=== PATIENT | male | born 1965 | race Caucasian/White ===

== ENCOUNTER 2018-03-02 11:15 | Emergency (ER) | payer OTHER, SELFPAY ==
--- NOTE | 2018-03-02 12:10 | RAD REPORT ---
EXAM DESCRIPTION: CT - CTHCSPWOC - 03/02/2018 11:52 am CLINICAL HISTORY: Fall, head and neck injury COMPARISON: None. TECHNIQUE: Axial 5 mm thick images of the head were obtained. Axial 2 mm thick images of the cervic al spine were obtained with sagittal and coronal reconstruction images generated and reviewed. All CT scans are performed using dose optimization technique as appropriate and may include automated exposure control or mA/KV adjustment according to patient size. FINDINGS: No intracranial hemorrhage, mass, edema or acute intracranial finding. No suspicion for ac ritesh infarction. No extra-axial fluid collections. Mastoid air cells and paranasal sinuses are clear. No globe or orbit abnormality seen. Cervical body height and alignment are normal. No disk space narrowing. No fracture or acute bony abn ormality. No paraspinal mass or hematoma. IMPRESSION: Negative CT head examination for acute or significant finding. Negative CT cervical spine examination for acute or significant finding.
--- NOTE | 2018-03-02 12:31 | ER ---
Nurse's Notes [facility] Name: Harpreet Fonseca Age: 53 yrs Sex: Male : 1965 Arrival Date: 03/02/2018 Time: 11:18 Bed 5 Private MD: Lorraine Jesus H Diagnosis: Contusion of unspecified part of head-right forehead;Superficial injury of head Presentation: 03/02 11:19 Presenting complaint: Patient states: "We were at [facility] and I went to walk out aj and theres a drain on the floor and it wasn't covered and I step through and fell forward and hit my head on the door" Denies LOC, vomiting. Denies taking any blood thinners. Reports headache, neck stiffness and nausea. Transition of care: patient was not received from another setting of care. Onset of symptoms was March 02, 2018 at 11:00. Risk Assessment: Do you want to hurt yourself or someone else? Patient reports no desire to harm self or others. Initial Sepsis Screen: Does the patient meet any 2 criteria? No. Patient's initial sepsis screen is negative. Does the patient have a suspected source of infection? No. Patient's initial sepsis screen is negative. Care prior to arrival: None. 11:19 Method Of Arrival: Ambulatory [facility] 11:19 Acuity: KATERINA 3 aj1 Triage Assessment: 11:21 General: Appears in no apparent distress. uncomfortable, Behavior is calm, cooperative, aj1 appropriate for age. Pain: Complains of pain in occipital area and right eye Pain currently is 5 out of 10 on a pain scale. Neuro: Level of Consciousness is awake, alert, obeys commands, Gait is steady, Speech is normal. Cardiovascular: Patient's skin is warm and dry. Respiratory: Airway is patent Respiratory effort is even, unlabored, Respiratory pattern is regular, symmetrical. Historical: - Allergies: 11:21 No Known Allergies; aj1 - Home Meds: 11:21 None [Active]; aj1 - PMHx: 11:21 None; aj1 - Immunization history:: Flu vaccine is not up to date. - Social history:: Smoking status: Patient/guardian denies using tobacco. - Ebola Screening: : Patient denies travel to an Ebola-affected area in the 21 days before illness onset. Screenin:36 Abuse screen: Denies threats or abuse. Denies injuries from another. Nutritional ph screening: No deficits noted. Tuberculosis screening: No symptoms or risk factors identified. Fall Risk Fall in past 12 months (25 points). No secondary diagnosis (0 pts). No IV (0 pts). Ambulatory Aid- None/Bed Rest/Nurse Assist (0 pts). Gait- Normal/Bed Rest/Wheelchair (0 pts) Mental Status- Oriented to own ability (0 pts). Total Ramos Fall Scale indicates Low Risk Score (25-44 pts). Fall prevention measures have been instituted. Family Present and informed to notify staff if they need to leave bedside As available Patient and Family Educated on Fall Prevention Program and strategies. Assessment: 11:33 General: Appears in no apparent distress. comfortable, well groomed, Behavior is calm, ph cooperative, appropriate for age. Pain: Complains of pain in right posterior aspect of neck and left posterior aspect of neck, right side of forehead. Neuro: Level of Consciousness is awake, alert, obeys commands, Oriented to person, place, time, situation, Moves all extremities. Full function Gait is steady, Speech is normal, Facial symmetry appears normal, Facial symmetry: tongue is midline, Pupils are PERRLA, Reports dizziness, headache Denies weakness difficulty swallowing, photophobia. Cardiovascular: Capillary refill < 3 seconds in bilateral fingers Patient's skin is warm and dry. Respiratory: Airway is patent Respiratory effort is even, unlabored, Denies shortness of breath pain with respiration. GI: Reports nausea, Patient currently denies abdominal pain, vomiting. Derm: Skin is healthy with good turgor, Skin is pink, warm \\T\\ dry. Musculoskeletal: Circulation, motion, and sensation intact. Range of motion: intact in all extremities. Injury Description: Abrasion sustained to right side of forehead. 12:45 Reassessment: Patient appears in no apparent distress at this time. Patient and/or ph family updated on plan of care and expected duration. Pain level reassessed. Patient is alert, oriented x 3, equal unlabored respirations, skin warm/dry/pink. Pt d/c home w/ SO, instructed to follow up w/ neuro if symptoms persist. Vital Signs: 11:21 BP 150 / 101; Pulse 79; Resp 18; Temp 97.7; Pulse Ox 97% on R/A; Weight 111.13 kg (R); aj1 Height 5 ft. 10 in. (177.80 cm); Pain 5/10; 12:46 BP 142 / 87; Pulse 76; Resp 18; Temp 98.0; Pulse Ox 99% on R/A; Pain 4/10; ph 11:21 Body Mass Index 35.15 (111.13 kg, 177.80 cm) aj1 ED Course: 11:18 Patient arrived in ED. sb2 11:18 Lorraine Jesus DO is Private Physician. sb2 11:21 Triage completed. aj1 11:21 Arm band placed on Patient placed in an exam room. aj1 11:23 Preet Flood NP is PHCP. pm1 11:23 Abdon Bhatia MD is Attending Physician. pm1 11:28 Brynn Lira RN is Primary Nurse. ph 11:37 Patient has correct armband on for positive identification. Bed in low position. Call ph light in reach. Side rails up X 1. 11:51 CT Head C Spine In Process Unspecified. EDMS 12:30 Lorraine Jesus DO is Referral Physician. pm1 12:32 Dwayne De Jesus MD is Referral Physician. pm1 12:47 No provider procedures requiring assistance completed. Patient did not have IV access ph during this emergency room visit. Administered Medications: No medications were administered Outcome: 12:30 Discharge ordered by MD. pm1 12:47 Discharged to home ambulatory, with significant other. ph 12:47 Condition: good 12:47 Discharge instructions given to patient, Instructed on discharge instructions, follow up and referral plans. Demonstrated understanding of instructions, follow-up care. 12:47 Patient left the ED. ph Signatures: Dispatcher [employer] EDMS Leda Bravo RN RN aj1 Brynn Lira RN RN Preet Flood NP BURNING SUPERVISOR pm1 Gisela Saravia sb2
--- NOTE | 2018-03-02 12:32 | EDPHYS ---
Physician Documentation [facility] Name: Harpreet Fonseca Age: 53 yrs Sex: Male : 1965 Arrival Date: 03/02/2018 Time: 11:18 Bed 5 Private MD: Lorraine Jesus H ED Physician Abdon Bhatia HPI: 03/02 12:00 This 53 yrs old Male presents to ER via Ambulatory with complaints of Fall pm1 Injury. 12:00 Details of fall: The patient fell from an upright position, while walking. Onset: The pm1 symptoms/episode began/occurred this morning. Associated injuries: The patient sustained injury to the head, contusion. Severity of symptoms: in the emergency department the symptoms are unchanged. The patient has experienced a previous episode, many years ago, Patient with symptoms of a concussion while playing football many years ago. The patient has not recently seen a physician. Patient was walking out of [employer] this AM and he stepped into a hole after the grate slipped out. Patient hit the right side of his forehead against the concrete. Patient has a mild headache and felt fine until he started practice swing at home with his golf dog trainer. His headache got worse with the exertion. No LOC. No vomiting . Historical: - Allergies: 11:21 No Known Allergies; aj1 - Home Meds: 11:21 None [Active]; aj1 - PMHx: 11:21 None; aj1 - Immunization history:: Flu vaccine is not up to date. - Social history:: Smoking status: Patient/guardian denies using tobacco. - Ebola Screening: : Patient denies travel to an Ebola-affected area in the 21 days before illness onset. ROS: 12:00 Constitutional: Negative for fever, chills, and weight loss, Eyes: Negative for injury, pm1 pain, redness, and discharge, ENT: Negative for injury, pain, and discharge, Neck: Negative for injury, pain, and swelling, Cardiovascular: Negative for chest pain, palpitations, and edema, Respiratory: Negative for shortness of breath, cough, wheezing, and pleuritic chest pain, Abdomen/GI: Negative for abdominal pain, nausea, vomiting, diarrhea, and constipation, Back: Negative for injury and pain, MS/Extremity: Negative for injury and deformity, Skin: Negative for injury, rash, and discoloration. 12:00 Neuro: Positive for headache. Exam: 12:00 Constitutional: This is a well developed, well nourished patient who is awake, alert, pm1 and in no acute distress. 12:00 Eyes: Pupils equal round and reactive to light, extra-ocular motions intact. Lids and lashes normal. Conjunctiva and sclera are non-icteric and not injected. Cornea within normal limits. Periorbital areas with no swelling, redness, or edema. ENT: Nares patent. No nasal discharge, no septal abnormalities noted. Tympanic membranes are normal and external auditory canals are clear. Oropharynx with no redness, swelling, or masses, exudates, or evidence of obstruction, uvula midline. Mucous membranes moist. Chest/axilla: Normal chest wall appearance and motion. Nontender with no deformity. No lesions are appreciated. Cardiovascular: Regular rate and rhythm with a normal S1 and S2. No gallops, murmurs, or rubs. Normal PMI, no JVD. No pulse deficits. Respiratory: Lungs have equal breath sounds bilaterally, clear to auscultation and percussion. No rales, rhonchi or wheezes noted. No increased work of breathing, no retractions or nasal flaring. Abdomen/GI: Soft, non-tender, with normal bowel sounds. No distension or tympany. No guarding or rebound. No evidence of tenderness throughout. Back: No spinal tenderness. No costovertebral tenderness. Full range of motion. Skin: Warm, dry with normal turgor. Normal color with no rashes, no lesions, and no evidence of cellulitis. MS/ Extremity: Pulses equal, no cyanosis. Neurovascular intact. Full, normal range of motion. 12:00 Head/face: Noted is no obvious of injury or deformity except contusion, of the right side of forehead. 12:00 Neck: External neck: tenderness, of the left trapezius and right trapezius, C-spine: vertebral tenderness, is not appreciated. Vital Signs: 11:21 BP 150 / 101; Pulse 79; Resp 18; Temp 97.7; Pulse Ox 97% on R/A; Weight 111.13 kg (R); aj1 Height 5 ft. 10 in. (177.80 cm); Pain 5/10; 12:46 BP 142 / 87; Pulse 76; Resp 18; Temp 98.0; Pulse Ox 99% on R/A; Pain 4/10; ph 11:21 Body Mass Index 35.15 (111.13 kg, 177.80 cm) aj1 MDM: 11:33 Patient medically screened. pm1 12:23 Data reviewed: vital signs. Data interpreted: Pulse oximetry: on room air is 97 %. pm1 Interpretation: normal. 12:25 ED course: Patient refused pain medication during ER visit and for prescription. pm1 12:29 Counseling: I had a detailed discussion with the patient and/or guardian regarding: the pm1 historical points, exam findings, and any diagnostic results supporting the discharge/admit diagnosis, radiology results, the need for outpatient follow up, to return to the emergency department if symptoms worsen or persist or if there are any questions or concerns that arise at home. 03/02 11:33 Order name: CT Head C Spine; Complete Time: 12:21 pm1 Administered Medications: No medications were administered Disposition: 16:24 Co-signature as Attending Physician, Abdon Bhatia MD I agree with the assessment and kdr plan of care. Disposition: 03/02/18 12:30 Discharged to Home. Impression: Contusion of unspecified part of head - right forehead, Superficial injury of head. - Condition is Stable. - Discharge Instructions: Contusion, Concussion, Adult, Head Injury, Adult. - Medication Reconciliation Form, Thank You Letter form. - Follow up: Emergency Department; When: As needed; Reason: Worsening of condition. Follow up: Lorraine Jesus DO; When: 2 - 3 days; Reason: Recheck today's complaints, Continuance of care, Re-evaluation by your physician. Follow up: Dwayne De Jesus MD; When: 2 - 3 days; Reason: Recheck today's complaints, Continuance of care, Re-evaluation by your physician. - Problem is new. - Symptoms have improved. Signatures: Dispatcher [employer] EDMS Leda Bravo RN RN aj1 Abdon Bhatia MD MD [facility] Brynn Lira RN RN ph Preet Flood, RENTAL SALESPERSON RENTAL SALESPERSON pm1 Corrections: (The following items were deleted from the chart) 12:30 12:30 03/02/2018 12:30 Discharged to Home. Impression: Contusion of unspecified part of pm1 head - right forehead. Condition is Stable. Forms are Medication Reconciliation Form, Thank You Letter, Antibiotic Education, Prescription Opioid Use. Follow up: Emergency Department; When: As needed; Reason: Worsening of condition. Follow up: Lorraine Jesus; When: 2 - 3 days; Reason: Recheck today's complaints, Continuance of care, Re-evaluation by your physician. Problem is new. Symptoms have improved. pm1 12:32 12:30 03/02/2018 12:30 Discharged to Home. Impression: Contusion of unspecified part of pm1 head - right forehead; Superficial injury of head. Condition is Stable. Forms are Medication Reconciliation Form, Thank You Letter, Antibiotic Education, Prescription Opioid Use. Follow up: Emergency Department; When: As needed; Reason: Worsening of condition. Follow up: Lorraine Jesus; When: 2 - 3 days; Reason: Recheck today's complaints, Continuance of care, Re-evaluation by your physician. Problem is new. Symptoms have improved. pm1 12:47 12:32 03/02/2018 12:30 Discharged to Home. Impression: Contusion of unspecified part of ph head - right forehead; Superficial injury of head. Condition is Stable. Discharge Instructions: Contusion, Concussion, Adult, Head Injury, Adult. Forms are Medication Reconciliation Form, Thank You Letter. Follow up: Emergency Department; When: As needed; Reason: Worsening of condition. Follow up: Lorraine Jesus; When: 2 - 3 days; Reason: Recheck today's complaints, Continuance of care, Re-evaluation by your physician. Follow up: Dwayne De Jesus; When: 2 - 3 days; Reason: Recheck today's complaints, Continuance of care, Re-evaluation by your physician. Problem is new. Symptoms have improved. pm1
== END 2018-03-02 12:47 | disposition home or self-care (01) ==
LOC: ER 11:15
DX: S00.83XA Contusion of other part of head, initial encounter (principal); W19.XXXA Unspecified fall, initial encounter; Y93.01 Activity, walking, marching and hiking; Y92.511 Restaurant or cafe as the place of occurrence of the external cause
CPT/HCPCS: 70450; 72125; 99283

== ENCOUNTER 2019-12-08 11:29 | Emergency (ER) | payer BC, SELFPAY ==
[2019-12-08] MEDS ORDERED: ONDANSETRON 4 MG/2 ML VIAL ONE (12:36)
[2019-12-08] MEDS ORDERED: NA CHLORIDE 0.9% 1,000 ML ONE ×2 (12:36→14:23)
[2019-12-08] MEDS ORDERED: MECLIZINE HCL 12.5 MG TAB ONE (12:36)
[2019-12-08] MEDS ORDERED: FOLIC ACID 5 MG/ML VIAL ONE (12:37)
--- NOTE | 2019-12-08 12:37 | RAD REPORT ---
EXAM DESCRIPTION: CT - Head Brain Wo Cont - 12/08/2019 12:24 pm CLINICAL HISTORY: headache;Dizziness Headache, drowsiness COMPARISON: Head C Spine Mpr Wo Con dated 03/02/2018 TECHNIQUE: All CT scans are performed using dose optimization technique as appropriate and may inclu de automated exposure control or mA/KV adjustment according to patient size. FINDINGS: No intracranial hemorrhage, hydrocephalus or extra-axial fluid collection.No areas of brai n edema or evidence of midline shift. The paranasal sinuses and mastoids are clear. The calvarium is intact. IMPRESSION: No acute intracranial abnormality.
--- NOTE | 2019-12-08 12:41 | RAD REPORT ---
EXAM DESCRIPTION: RAD - Chest Single View - 12/08/2019 12:20 pm CLINICAL HISTORY: COUGH Chest pain. COMPARISON: Head Brain Wo Cont dated 12/08/2019 FINDINGS: Portable technique limits examination quality. The lungs are grossly clear. The heart is upper limit of normal in size. No displaced fractures. IMPRESSION: No acute intrathoracic process suspected.
[2019-12-08 12:54] LABS: Absolute Lymphocytes (CBC) 2.1 K/uL (0.7-4.9); Basophils % 1.3 % (0-1.3); Hematocrit 51.2 % (39.6-49.0); Lymphocytes % 24.5 % (15.3-44.8); MPV 9.2 fL (7.6-11.3); RBC Red Blood Cell Count 5.84 M/uL (4.33-5.43)
[2019-12-08] MEDS ORDERED: FENTANYL CITR 100 MCG/2 ML ONE ×2 (12:55→13:56)
[2019-12-08] MEDS ORDERED: KETOROLAC 30 MG/ML INJ ONE (13:08)
[2019-12-08 13:14] LABS: ALT/SGPT 27 U/L (12-78); AST/SGOT 15 U/L (15-37); Alkaline Phosphatase 37 U/L (45-117); BUN Blood Urea Nitrogen 12 mg/dL (7-18); Bicarbonate 28 mmol/L (21-32); Bilirubin Direct 0.2 mg/dL (0-0.2); Bilirubin Total 0.6 mg/dL (0.2-1.0); Glucose Level 99 mg/dL (74-106); Magnesium 2.1 mg/dL (1.8-2.4); NT PRO-BNP 20 pg/mL (<125); Potassium 4.3 mmol/L (3.5-5.1); Protein, Total 7.6 g/dL (6.4-8.2); Sodium Level 141 mmol/L (136-145); Troponin (Emerg Dept Use Only) < 0.02 ng/mL (0.0-0.045)
--- NOTE | 2019-12-08 13:47 | RAD REPORT ---
EXAM DESCRIPTION: CT - Head angio - 12/08/2019 1:33 pm CLINICAL HISTORY: Dizziness;Headache Headache, drowsiness, TIA COMPARISON: Head Brain Wo Cont dated 12/08/2019 TECHNIQUE: CT angiography of the head was performed with MIPs. All CT scans are performed using dose optimization technique as appropriate and may include automated exposure control or mA/KV adjustment according to patient size. FINDINGS: No evidence of aneurysm is detected. No flow-limiting stenosis or vascular malformation id entified. Antegrade flow is seen in the vertebral arteries. The vertebral arteries are codominant. The visualized dural venous sinuses are patent. IMPRESSION: No significant flow abnormality is detected.
--- NOTE | 2019-12-08 13:49 | RAD REPORT ---
EXAM DESCRIPTION: CT - Neck Angio - 12/08/2019 1:34 pm CLINICAL HISTORY: headache/ dizziness Headache, drowsiness, COMPARISON: Head C Spine Mpr Wo Con dated 03/02/2018 TECHNIQUE: CT angiography of the neck vessels was performed with MIPs. All CT scans are performed using dose optimization technique as appropriate and may include automated exposure control or mA/KV adjustment according to patient size. FINDINGS: A left aortic arch is identified with normal three vessel configuration of the great vesse ls. No significant flow abnormality is seen of the common carotid bilaterally. No significant stenosis is identified involving the cervical segments of both internal carotid arteri es. Normal flow is seen within both vertebral arteries. IMPRESSION: No significant flow abnormality of the neck vessels is identified.
--- NOTE | 2019-12-08 14:11 | EDPHYS ---
Physician Documentation [facility] Name: Harpreet Fonseca Age: 54 yrs Sex: Male : 1965 Arrival Date: 12/08/2019 Time: 11:34 Bed 5 Private MD: Lorraine Jesus H ED Physician Jose Martin Townsend HPI: 12/07 12:53 This 54 yrs old Male presents to ER via Wheelchair with complaints of rocio Dizziness, Headache, Disoriented. 12:53 The patient presents with dizziness, lightheadedness, sense of spinning, vertigo. rocio Onset: The symptoms/episode began/occurred just prior to arrival. Context: occurred outdoors. Modifying factors: The symptoms are alleviated by closing eyes, holding head still. Associated signs and symptoms: Pertinent positives: headache. Severity of symptoms: At their worst the symptoms were mild moderate in the emergency department the symptoms are unchanged. Patient's baseline: Neuro: alert and fully oriented, Motor: no deficits, Ambulation: walks without assistance. The patient has experienced similar episodes in the past, multiple times, but today's symptoms are worse, more painful. Historical: - Allergies: 11:51 No Known Allergies; ss - Immunization history:: Adult Immunizations up to date. - Social history:: Smoking status: Patient denies any tobacco usage or history of. - Family history:: not pertinent. ROS: 12:53 Constitutional: Negative for fever, chills, and weight loss, Eyes: Negative for injury, rocio pain, redness, and discharge, ENT: Negative for injury, pain, and discharge, Neck: Negative for injury, pain, and swelling, Cardiovascular: Negative for chest pain, palpitations, and edema, Respiratory: Negative for shortness of breath, cough, wheezing, and pleuritic chest pain, Abdomen/GI: Negative for abdominal pain, nausea, vomiting, diarrhea, and constipation, Back: Negative for injury and pain, : Negative for injury, bleeding, discharge, and swelling, MS/Extremity: Negative for injury and deformity, Skin: Negative for injury, rash, and discoloration, Psych: Negative for depression, anxiety, suicide ideation, homicidal ideation, and hallucinations, Allergy/Immunology: Negative for hives, rash, and allergies, Endocrine: Negative for neck swelling, polydipsia, polyuria, polyphagia, and marked weight changes, Hematologic/Lymphatic: Negative for swollen nodes, abnormal bleeding, and unusual bruising. 12:53 Neuro: Positive for dizziness, headache. Exam: 12:53 Constitutional: This is a well developed, well nourished patient who is awake, alert, rocio and in no acute distress. Head/Face: Normocephalic, atraumatic. Eyes: Pupils equal round and reactive to light, extra-ocular motions intact. Lids and lashes normal. Conjunctiva and sclera are non-icteric and not injected. Cornea within normal limits. Periorbital areas with no swelling, redness, or edema. ENT: Nares patent. No nasal discharge, no septal abnormalities noted. Tympanic membranes are normal and external auditory canals are clear. Oropharynx with no redness, swelling, or masses, exudates, or evidence of obstruction, uvula midline. Mucous membranes moist. Neck: Trachea midline, no thyromegaly or masses palpated, and no cervical lymphadenopathy. Supple, full range of motion without nuchal rigidity, or vertebral point tenderness. No Meningismus. Chest/axilla: Normal chest wall appearance and motion. Nontender with no deformity. No lesions are appreciated. Cardiovascular: Regular rate and rhythm with a normal S1 and S2. No gallops, murmurs, or rubs. Normal PMI, no JVD. No pulse deficits. Respiratory: Lungs have equal breath sounds bilaterally, clear to auscultation and percussion. No rales, rhonchi or wheezes noted. No increased work of breathing, no retractions or nasal flaring. Abdomen/GI: Soft, non-tender, with normal bowel sounds. No distension or tympany. No guarding or rebound. No evidence of tenderness throughout. Back: No spinal tenderness. No costovertebral tenderness. Full range of motion. Male : Normal genitalia with no discharge or lesions. Skin: Warm, dry with normal turgor. Normal color with no rashes, no lesions, and no evidence of cellulitis. MS/ Extremity: Pulses equal, no cyanosis. Neurovascular intact. Full, normal range of motion. Neuro: Awake and alert, GCS 15, oriented to person, place, time, and situation. Cranial nerves II-XII grossly intact. Motor strength 5/5 in all extremities. Sensory grossly intact. Cerebellar exam normal. Normal gait. Psych: Awake, alert, with orientation to person, place and time. Behavior, mood, and affect are within normal limits. 12:53 Neck: ROM/movement: is normal, no acute changes, Meningeal signs: are not present, Kernig's sign is negative, Brudzinski's sign is negative. Vital Signs: 11:45 BP 140 / 99; Pulse 80; Resp 16; Temp 98.7(TE); Pulse Ox 95% on R/A; Weight 108.86 kg; ss Height 5 ft. 10 in. (177.80 cm); Pain 8/10; 11:52 BP 126 / 98; ss 12:45 BP 132 / 88; Pulse 78; Resp 16; Pulse Ox 99% ; Pain 8/10; hb 13:45 BP 136 / 86; Pulse 77; Resp 15; Pulse Ox 99% on R/A; Pain 8/10; hb 11:45 Body Mass Index 34.44 (108.86 kg, 177.80 cm) ss MDM: 11:56 Patient medically screened. [facility] 12:59 Data reviewed: vital signs, nurses notes, lab test result(s), EKG, radiologic studies, rocio CT scan, plain films. Data interpreted: compliance monitor: rate is 80 beats/min, rhythm is normal sinus rhythm, Pulse oximetry: on room air is 95 %. Test interpretation: by ED physician or midlevel provider: ECG, plain radiologic studies. Counseling: I had a detailed discussion with the patient and/or guardian regarding: the historical points, exam findings, and any diagnostic results supporting the discharge/admit diagnosis, lab results, radiology results, the need for outpatient follow up, for definitive care, a neurologist. ED course: labs all discussed, follow up important. 12/07 12:05 Order name: Basic Metabolic Panel; Complete Time: 14:05 [facility] 12/07 12:05 Order name: CBC with Diff; Complete Time: 14:05 [facility] 12/07 12:05 Order name: LFT's; Complete Time: 14:05 [facility] 12/07 12:05 Order name: Magnesium; Complete Time: 14:05 [facility] 12/07 12:05 Order name: NT PRO-BNP; Complete Time: 14:05 [facility] 12/07 12:05 Order name: Troponin (emerg Dept Use Only); Complete Time: 14:05 [facility] 12/07 12:01 Order name: CT Head Brain wo Cont; Complete Time: 12:40 ss 12/07 12:05 Order name: XRAY Chest (1 view); Complete Time: 14:05 [facility] 12/07 12:24 Order name: Sed Rate; Complete Time: 14:05 [facility] 12/07 12:24 Order name: CRP; Complete Time: 14:05 [facility] 12/07 12:41 Order name: CT Head Angio; Complete Time: 14:05 [facility] 12/07 12:47 Order name: Neck Angio; Complete Time: 14:05 EDMS 12/07 12:05 Order name: EKG; Complete Time: 12:05 [facility] 12/07 12:05 Order name: Cardiac monitoring; Complete Time: 12:23 [facility] 12/07 12:05 Order name: EKG - Nurse/Tech; Complete Time: 13:58 [facility] 12/07 12:05 Order name: IV Saline Lock; Complete Time: 12:41 [facility] 12/07 12:05 Order name: Labs collected and sent; Complete Time: 12:41 [facility] 12/07 12:05 Order name: O2 Per Protocol; Complete Time: 12:23 [facility] 12/07 12:05 Order name: O2 Sat Monitoring; Complete Time: 12:23 [facility] 12/07 14:10 Order name: Oxygen; Complete Time: 14:22 [facility] Administered Medications: 12:40 Drug: NS 0.9% 1000 ml Route: IV; Rate: 1 bolus; Site: right antecubital; hb 13:40 Follow up: Response: No adverse reaction; IV Status: Completed infusion; IV Intake: hb 1000ml 12:40 Drug: Meclizine 50 mg Route: PO; hb 13:10 Follow up: Response: No adverse reaction hb 12:40 Drug: Zofran (Ondansetron) 4 mg Route: IVP; Site: right antecubital; hb 13:10 Follow up: Response: No adverse reaction hb 12:40 Drug: foLIC Acid 1 mg Route: IVPB; Site: right antecubital; hb 12:41 Follow up: IV Status: Completed infusion; IV Intake: 0.2ml hb 13:10 Follow up: Response: No adverse reaction hb 12:47 Drug: fentaNYL (PF) 25 mcg Route: IVP; Site: right antecubital; hb 13:15 Follow up: Response: No adverse reaction hb 13:00 Drug: TORadol 30 mg Route: IVP; Site: right antecubital; hb 13:30 Follow up: Response: No adverse reaction hb 13:47 Drug: fentaNYL (PF) 25 mcg Route: IVP; Site: right antecubital; hb 14:05 Follow up: Response: No adverse reaction hb 14:22 Drug: Benadryl 50 mg Route: IVP; Site: right antecubital; hb 15:09 Follow up: Response: No adverse reaction hb 14:22 Drug: Reglan 10 mg Route: IVP; Site: right antecubital; hb 15:09 Follow up: Response: No adverse reaction hb 14:22 Drug: NS 0.9% 1000 ml Route: IV; Rate: 1 bolus; Site: right antecubital; hb 15:15 Follow up: Response: No adverse reaction; IV Status: Completed infusion; IV Intake: hb 1000ml Disposition: 12/08/19 14:10 Discharged to Home. Impression: Headache, Vertiginous syndromes in diseases classified elsewhere, unspecified ear. - Condition is Stable. - Discharge Instructions: Dizziness, General Headache Without Cause, Vertigo, Aspirin and Your Heart, General Headache Without Cause, [id number]. - Prescriptions for Fioricet with Codeine 50- 325-40-30 mg Oral capsule - take 1 capsule by ORAL route every 4 hours as needed not to exceed 6 capsules per 24hrs; 24 capsule. Zofran 4 mg Oral Tablet - take 1 tablet by ORAL route every 12 hours As needed; 20 tablet. Meclizine 25 mg Oral Tablet - take 1 tablet by ORAL route every 8 hours As needed; 30 tablet. - Medication Reconciliation Form, Thank You Letter, Antibiotic Education, Prescription Opioid Use form. - Follow up: Private Physician; When: 2 - 3 days; Reason: Recheck today's complaints, Continuance of care, Re-evaluation by your physician. Follow up: Dwayne De Jesus; When: 2 - 3 days; Reason: Recheck today's complaints, Re-evaluation by your physician. - Problem is new. - Symptoms have improved. Signatures: Dispatcher [employer] EDMS Jose Martin Townsend MD MD cha Smirch, Shelby, RN RN Mikki Marion RN RN Corrections: (The following items were deleted from the chart) 15:23 14:10 12/08/2019 14:10 Discharged to Home. Impression: Headache; Vertiginous syndromes hb in diseases classified elsewhere, unspecified ear. Condition is Stable. Discharge Instructions: Dizziness, General Headache Without Cause, Vertigo, Aspirin and Your Heart, General Headache Without Cause, [id number]. Prescriptions for Fioricet with Codeine [id number] mg Oral capsule - take 1 capsule by ORAL route every 4 hours as needed not to exceed 6 capsules per 24hrs; 24 capsule, Zofran 4 mg Oral Tablet - take 1 tablet by ORAL route every 12 hours As needed; 20 tablet, Meclizine 25 mg Oral Tablet - take 1 tablet by ORAL route every 8 hours As needed; 30 tablet. and Forms are Medication Reconciliation Form, Thank You Letter, Antibiotic Education, Prescription Opioid Use. Follow up: Private Physician; When: 2 - 3 days; Reason: Recheck today's complaints, Continuance of care, Re-evaluation by your physician. Follow up: Dwayne De Jesus; When: 2 - 3 days; Reason: Recheck today's complaints, Re-evaluation by your physician. Problem is new. Symptoms have improved. rocio
--- NOTE | 2019-12-08 14:11 | ER ---
Nurse's Notes [facility] Name: Harpreet Fonseca Age: 54 yrs Sex: Male : 1965 Arrival Date: 12/08/2019 Time: 11:34 Bed 5 Private MD: Lorraine Jesus H Diagnosis: Headache;Vertiginous syndromes in diseases classified elsewhere, unspecified ear Presentation: 12/07 11:45 Chief complaint: Patient states: "I was playing golf and I got dizzy and and nauseous. ss I still feel dizzy when I turn my head and that makes me nauseous. reports that patient had a concussion a year and a half ago and has episodes like this, but not usually this severe. Pt also c/o headache. Coronavirus screen: Client denies travel out of the [place] in the last 14 days. At this time, the client does not indicate any symptoms associated with coronavirus-19. Ebola Screen: Patient denies exposure to infectious person. Patient denies travel to an Ebola-affected area in the 21 days before illness onset. Initial Sepsis Screen: Does the patient meet any 2 criteria? No. Patient's initial sepsis screen is negative. Does the patient have a suspected source of infection? No. Patient's initial sepsis screen is negative. Risk Assessment: Do you want to hurt yourself or someone else? Patient reports no desire to harm self or others. Onset of symptoms was December 08, 2019. 11:45 Method Of Arrival: Wheelchair ss 11:45 Acuity: KATERINA 3 ss Triage Assessment: 12:15 Headache History: The patient has had previous headaches and this one is similar to hb previous episodes, and this one is more severe than previous episodes. General: Appears uncomfortable, Behavior is calm, cooperative. Pain: Pain currently is 8 out of 10 on a pain scale. Pain began 2 hours ago. Also complains of nausea. Historical: - Allergies: 11:51 No Known Allergies; ss - Immunization history:: Adult Immunizations up to date. - Social history:: Smoking status: Patient denies any tobacco usage or history of. - Family history:: not pertinent. Screenin:41 Abuse screen: Denies threats or abuse. Denies injuries from another. Nutritional hb screening: No deficits noted. Tuberculosis screening: No symptoms or risk factors identified. Fall Risk None identified. Assessment: 12:15 General: Appears in no apparent distress. uncomfortable, Behavior is calm, cooperative. hb Pain: Pain currently is 8 out of 10 on a pain scale. Neuro: Level of Consciousness is awake, alert, obeys commands, Oriented to person, place, time. Cardiovascular: Capillary refill < 3 seconds Patient's skin is warm and dry. Respiratory: Respiratory effort is even, unlabored, Respiratory pattern is regular, symmetrical. GI: Reports nausea. : No signs and/or symptoms were reported regarding the genitourinary system. EENT: No signs and/or symptoms were reported regarding the EENT system. Derm: Skin is pink, warm \\T\\ dry. Musculoskeletal: No signs and/or symptoms reported regarding the musculoskeletal system. 13:47 Reassessment: Patient appears in no apparent distress at this time. No changes from previously documented assessment. Patient and/or family updated on plan of care and expected duration. Pain level reassessed. Patient is alert, oriented x 3, equal unlabored respirations, skin warm/dry/pink. 14:23 Reassessment: Headache unchanged, Dr. Townsend notified. Medicated as ordered. hb Discharge ordered, IV fluids infusing at this time. 15:09 Reassessment: Patient appears in no apparent distress at this time. Patient and/or hb family updated on plan of care and expected duration. Pain level reassessed. Patient is alert, oriented x 3, equal unlabored respirations, skin warm/dry/pink. Patient states symptoms have improved. Vital Signs: 11:45 BP 140 / 99; Pulse 80; Resp 16; Temp 98.7(TE); Pulse Ox 95% on R/A; Weight 108.86 kg; ss Height 5 ft. 10 in. (177.80 cm); Pain 8/10; 11:52 BP 126 / 98; ss 12:45 BP 132 / 88; Pulse 78; Resp 16; Pulse Ox 99% ; Pain 8/10; hb 13:45 BP 136 / 86; Pulse 77; Resp 15; Pulse Ox 99% on R/A; Pain 8/10; hb 11:45 Body Mass Index 34.44 (108.86 kg, 177.80 cm) ED Course: 11:34 Patient arrived in ED. mr 11:34 Lorraine Jesus DO is Private Physician. mr 11:51 Triage completed. ss 11:51 Arm band placed on right wrist. ss 11:55 Jose Martin Townsend MD is Attending Physician. rocio 12:21 XRAY Chest (1 view) In Process Unspecified. EDMS 12:23 Mikki Marion, RN is Primary Nurse. hb 12:23 CT Head Brain wo Cont In Process Unspecified. EDMS 12:24 CT completed. Patient tolerated procedure well. Patient moved back from CT. bq 12:36 Inserted saline lock: 20 gauge antecubital area, using aseptic technique. hb 12:41 Patient has correct armband on for positive identification. Bed in low position. Call hb light in reach. 13:33 CT Head Angio In Process Unspecified. EDMS 13:34 CT completed. Patient tolerated procedure well. Patient moved back from CT. eh 13:34 Neck Angio In Process Unspecified. EDMS 14:10 Dwayne De Jesus MD is Referral Physician. rocio 15:23 No provider procedures requiring assistance completed. IV discontinued, intact, hb bleeding controlled, No redness/swelling at site. Pressure dressing applied. Administered Medications: 12:40 Drug: NS 0.9% 1000 ml Route: IV; Rate: 1 bolus; Site: right antecubital; hb 13:40 Follow up: Response: No adverse reaction; IV Status: Completed infusion; IV Intake: hb 1000ml 12:40 Drug: Meclizine 50 mg Route: PO; hb 13:10 Follow up: Response: No adverse reaction hb 12:40 Drug: Zofran (Ondansetron) 4 mg Route: IVP; Site: right antecubital; hb 13:10 Follow up: Response: No adverse reaction hb 12:40 Drug: foLIC Acid 1 mg Route: IVPB; Site: right antecubital; hb 12:41 Follow up: IV Status: Completed infusion; IV Intake: 0.2ml hb 13:10 Follow up: Response: No adverse reaction hb 12:47 Drug: fentaNYL (PF) 25 mcg Route: IVP; Site: right antecubital; hb 13:15 Follow up: Response: No adverse reaction hb 13:00 Drug: TORadol 30 mg Route: IVP; Site: right antecubital; hb 13:30 Follow up: Response: No adverse reaction hb 13:47 Drug: fentaNYL (PF) 25 mcg Route: IVP; Site: right antecubital; hb 14:05 Follow up: Response: No adverse reaction hb 14:22 Drug: Benadryl 50 mg Route: IVP; Site: right antecubital; hb 15:09 Follow up: Response: No adverse reaction hb 14:22 Drug: Reglan 10 mg Route: IVP; Site: right antecubital; hb 15:09 Follow up: Response: No adverse reaction hb 14:22 Drug: NS 0.9% 1000 ml Route: IV; Rate: 1 bolus; Site: right antecubital; hb 15:15 Follow up: Response: No adverse reaction; IV Status: Completed infusion; IV Intake: hb 1000ml Intake: 12:41 IV: 0ml; Total: 0ml. hb 13:40 IV: 1000ml; Total: 1000ml. hb 15:15 IV: 1000ml; Total: 2000ml. hb Outcome: 14:10 Discharge ordered by . rocio 15:23 Discharged to home ambulatory, with significant other. hb 15:23 Condition: stable 15:23 Discharge instructions given to patient, significant other, Instructed on discharge instructions, follow up and referral plans. medication usage, Demonstrated understanding of instructions, follow-up care, medications, Prescriptions given X 3. 15:23 Patient left the ED. hb Signatures: Dispatcher [employer] EDMS Jose Martin Townsend MD MD cha Rivera, Mary mr Manny, Nayeli Veras Shelby, RN RN ss Baxter, Heather, RN RN hb
[2019-12-08] MEDS ORDERED: DIPHENHYDRAMINE 50 MG/ML VIAL ONE (14:23)
[2019-12-08] MEDS ORDERED: NA CHLORIDE 0.9% 50 ML IV ONE (14:23)
[2019-12-08] MEDS ORDERED: METOCLOPRAMIDE 10 MG/2mL INJ ONE (14:23)
[2019-12-08 15:30] VITALS: TEMP 98.7
[2019-12-08 15:32] VITALS: O2SAT 99
[2019-12-08 15:33] VITALS: BP 136/86
== END 2019-12-08 15:23 | disposition home or self-care (01) ==
LOC: ER 11:29
DX: R42 Dizziness and giddiness (principal); H82.9 Vertiginous syndromes in diseases classified elsewhere, unspecified ear
CPT/HCPCS: 96361; 85025; 80048; 36415; 83735; 80076; 85652; 84484; 83880; 86140; 70450; 70496; 70498; 71045; 96375; 96374; 99284; Q9967; J2765; J1200; J3010 ×2; J7030 ×2; J2405; J8597

== ENCOUNTER 2023-03-18 13:38 | Emergency (ER) | payer BC ==
--- OUTSIDE RECORDS SUMMARY | 2023-03-18 13:46 | XMS REPORT | Continuity of Care Document ---
:1965 Author Organization [facility] Address [address] [place] [address] [place] [id number] Care Team Providers Name Role Phone CATRACHO PERRY Primary Care Physician Unavailable Quinton Emerson MD Attending Clinician QUINTON EMERSON Attending Clinician Unavailable QUINTON EMERSON Attending Clinician Unavailable Doctor Unassigned, [place] Attending Clinician Unavailable QUINTON EMERSON Admitting Clinician Unavailable Payers Payer Name Policy Type Policy Number Effective Date Expiration Date S ource Problems Condition Condition Condition Status Onset Resolution Last Treating Co mments Source Name Details Category Date Date Treatment Clinician Date No known No known Disease Unive rs active active ity of problems problems [facility] Allergies, Adverse Reactions, Alerts Allergy Allergy Status Severity Reaction(s) Onset Inactive Treating Comm ents Source Name Type Date Date Clinician NO KNOWN Drug Active Univers ALLERGIE Class ity of S [facility] Social History Social Habit Start Date Stop Date Quantity Comments Source Exposure to Not sure [facility] SARS-CoV-2 (event) Medica l Branch Tobacco use and 2020-09-02 2020-09-02 Never used [facility] exposure 00:00:00 00:00:00 [facility] Sex Ass[birth year] [facility] 00:00:00 00:00:00 [facility] Smoking Status Start Date Stop Date Source Never smoker [facility] Medications Ordered Filled Start Stop Current Ordering Indication Dosage Frequency Signature Comments Components Source Medication Medication Date Date Medication? Clinician (SIG) Name Name fludeoxyglu 2020- No [id number] 15mCi 15 U nivers cose F-18 7-21 07-21 millicurie ity of (FDG) 14:30: 14:21 , [place] injection 00 :00 Intravenou Medi huong 15 s, ONCE, 1 Branch millicurie dose, 11/12/20 at 0930, Routine venlafaxine 2020-0 Yes [id number] 75mg Take 1 Univers XR (EFFEXOR 5-11 9102 capsule by it y of XR) 75 mg 00:00: mouth [place] 24 hr 00 daily with Medical capsule breakfast. Branch venlafaxine 2020-0 Yes [id number] 75mg Take 1 Univers XR (EFFEXOR 5-11 9102 capsule by it y of XR) 75 mg 00:00: mouth [place] 24 hr 00 daily with Medical capsule breakfast. Branch venlafaxine 2020-0 Yes [id number] 75mg Take 1 Univers XR (EFFEXOR 5-11 9102 capsule by it y of XR) 75 mg 00:00: mouth [place] 24 hr 00 daily with Medical capsule breakfast. Branch venlafaxine 2020-0 Yes [id number] 75mg Take 1 Univers XR (EFFEXOR 5-11 9102 capsule by it y of XR) 75 mg 00:00: mouth [place] 24 hr 00 daily with Medical capsule breakfast. Branch venlafaxine 2020-0 Yes [id number] 75mg Take 1 Univers XR (EFFEXOR 5-11 9102 capsule by it y of XR) 75 mg 00:00: mouth [place] 24 hr 00 daily with Medical capsule breakfast. Branch venlafaxine 2020-0 Yes [id number] 75mg Take 1 Univers XR (EFFEXOR 5-11 9102 capsule by it y of XR) 75 mg 00:00: mouth [place] 24 hr 00 daily with Medical capsule breakfast. Branch venlafaxine 2020-0 Yes [id number] 75mg Take 1 Univers XR (EFFEXOR 5-11 9102 capsule by it y of XR) 75 mg 00:00: mouth [place] 24 hr 00 daily with Medical capsule breakfast. Branch venlafaxine 2020-0 Yes [id number] 75mg Take 1 Univers XR (EFFEXOR 5-11 9102 capsule by it y of XR) 75 mg 00:00: mouth [place] 24 hr 00 daily with Medical capsule breakfast. Branch venlafaxine 2020-0 Yes [id number] 75mg Take 1 Univers XR (EFFEXOR 5-11 9102 capsule by it y of XR) 75 mg 00:00: mouth [place] 24 hr 00 daily with Medical capsule breakfast. Branch venlafaxine 1-0 Yes [id number] 75mg Take 1 Univers XR (EFFEXOR 5-11 9102 capsule by it y of XR) 75 mg 00:00: mouth [place] 24 hr 00 daily with Medical capsule breakfast. Branch venlafaxine 2020-0 Yes [id number] 75mg Take 1 Univers XR (EFFEXOR 5-11 9102 capsule by it y of XR) 75 mg 00:00: mouth [place] 24 hr 00 daily with Medical capsule breakfast. Branch venlafaxine 2020-0 Yes [id number] 75mg Take 1 Univers XR (EFFEXOR 5-11 9102 capsule by it y of XR) 75 mg 00:00: mouth [place] 24 hr 00 daily with Medical capsule breakfast. Branch topiramate 2020-0 Yes 25mg Take 1 Unive rs 25 mg 4-02 tablet by ity of tablet 00:00: mouth 2 (two) Medical times Branch daily. Take one tablet by mouth twice daily. After 5 days may increase to 2 tablets twice daily. topiramate 2020-0 Yes 25mg Take 1 Unive rs 25 mg 4-02 tablet by ity of tablet 00:00: mouth (two) Medical times Branch daily. Take one tablet by mouth twice daily. After 5 days may increase to 2 tablets twice daily. topiramate 2020-0 Yes 25mg Take 1 Unive rs 25 mg 4-02 tablet by ity of tablet 00:00: mouth 2 (two) Medical times Branch daily. Take one tablet by mouth twice daily. After 5 days may increase to 2 tablets twice daily. topiramate 1-0 Yes 25mg Take 1 Unive rs 25 mg 4-02 tablet by ity of tablet 00:00: mouth 2 (two) Medical times Branch daily. Take one tablet by mouth twice daily. After 5 days may increase to 2 tablets twice daily. topiramate 2021-0 Yes 25mg Take 1 Unive rs 25 mg 4-02 tablet by ity of tablet 00:00: mouth 2 (two) Medical times Branch daily. Take one tablet by mouth twice daily. After 5 days may increase to 2 tablets twice daily. topiramate 2021-0 Yes 25mg Take 1 Unive rs 25 mg 4-02 tablet by ity of tablet 00:00: mouth 2 [place] ([facility]) Medical times Branch daily. Take one tablet by mouth twice daily. After 5 days may increase to 2 tablets twice daily. topiramate 2020-0 Yes 25mg Take 1 Unive rs 25 mg 4-02 tablet by ity of tablet 00:00: mouth ([facility]) Medical times Branch daily. Take one tablet by mouth twice daily. After 5 days may increase to 2 tablets twice daily. topiramate 2020-0 Yes 25mg Take 1 Unive rs 25 mg 4-02 tablet by ity of tablet 00:00: mouth ([facility]) Medical times Branch daily. Take one tablet by mouth twice daily. After 5 days may increase to 2 tablets twice daily. topiramate 2020-0 Yes 25mg Take 1 Unive rs 25 mg 4-02 tablet by ity of tablet 00:00: mouth [place] ([facility]) Medical times [place] daily. Take one tablet by mouth twice daily. After 5 days may increase to 2 tablets twice daily. topiramate 2020-0 Yes 25mg Take 1 Unive rs 25 mg 4-02 tablet by ity of tablet 00:00: mouth [place] ([facility]) Medical times [place] daily. Take one tablet by mouth twice daily. After 5 days may increase to 2 tablets twice daily. topiramate 2020-0 Yes 25mg Take 1 Unive rs 25 mg 4-02 tablet by ity of tablet 00:00: mouth [place] ([facility]) Medical times [place] daily. Take one tablet by mouth twice daily. After 5 days may increase to 2 tablets twice daily. topiramate 2020-0 Yes 25mg Take 1 Unive rs 25 mg 4-02 tablet by ity of tablet 00:00: mouth [place] ([facility]) Medical times Branch daily. Take one tablet by mouth twice daily. After 5 days may increase to 2 tablets twice daily. topiramate 202-0 Yes 25mg Take 1 Unive rs 25 mg 4-02 tablet by ity of tablet 00:00: mouth [place] ([facility]) Medical times Branch daily. Take one tablet by mouth twice daily. After 5 days may increase to 2 tablets twice daily. divalproex 2020-0 Yes Take one Uni vers 125 mg EC 1-22 tablet by ity o f tablet 00:00: (125mg) [place] 00 mouth Medical twice Branch daily for one week, then increase to two tablets (250mg) twice daily. divalproex 202-0 Yes Take one Uni vers 125 mg EC 1-22 tablet by ity o f tablet 00:00: (125mg) [place] [address] mouth Medical twice Branch daily for one week, then increase to two tablets (250mg) twice daily. divalproex 2020-0 Yes Take one Uni vers 125 mg EC 1-22 tablet by ity o f tablet 00:00: (125mg) [place] mouth Medical twice Branch daily for one week, then increase to two tablets (250mg) twice daily. divalproex 2020-0 Yes Take one Uni vers 125 mg EC 1-22 tablet by ity o f tablet 00:00: (125mg) [place] [address] mouth Medical twice Branch daily for one week, then increase to two tablets (250mg) twice daily. divalproex 2020-0 Yes Take one Uni vers 125 mg EC 1-22 tablet by ity o f tablet 00:00: (125mg) [place] [address] mouth Medical twice Branch daily for one week, then increase to two tablets (250mg) twice daily. divalproex 2020-0 Yes Take one Uni vers 125 mg EC 1-22 tablet by ity o f tablet 00:00: (125mg) [place] [address] mouth Medical twice Branch daily for one week, then increase to two tablets (250mg) twice daily. divalproex 2020-0 Yes Take one Uni vers 125 mg EC 1-22 tablet by ity o f tablet 00:00: (125mg) [place] [address] mouth Medical twice Branch daily for one week, then increase to two tablets (250mg) twice daily. divalproex 2020-0 Yes Take one Uni vers 125 mg EC 1-22 tablet by ity o f tablet 00:00: (125mg) [place] [address] mouth Medical twice Branch daily for one week, then increase to two tablets (250mg) twice daily. divalproex 2020-0 Yes Take one Uni vers 125 mg EC 1-22 tablet by ity o f tablet 00:00: (125mg) [place] [address] mouth Medical twice Branch daily for one week, then increase to two tablets (250mg) twice daily. divalproex 2020-0 2021- No Take one Un maria eugenia 125 mg EC 1-22 05-11 tablet by ity of tablet 00:00: 00:00 (125mg) 00 :00 mouth Medical twice Branch daily for one week, then increase to two tablets (250mg) twice daily. divalproex 2020- No Take one Un maria eugenia 125 mg EC 05-1611 tablet by ity of tablet 00:00: 00:00 (125mg) [place] 00 :00 mouth Medical twice Branch daily for one week, then increase to two tablets (250mg) twice daily. testosteron 0 Yes Univer s e cypionate 1-21 ity of 200 mg/mL 00:00: [place] injection 00 Medical Branch testosteron 0 Yes Univer s e cypionate 1-21 ity of 200 mg/mL 00:00: [place] injection Medical Branch testosteron 0 Yes Univer s e cypionate 1-21 ity of 200 mg/mL 00:00: [place] injection Medical Branch testosteron 0 Yes Univer s e cypionate 1-21 ity of 200 mg/mL 00:00: [place] injection Medical Branch testosteron 0 Yes Univer s e cypionate 1-21 ity of 200 mg/mL 00:00: [place] injection Medical Branch testosteron 0 Yes Univer s e cypionate 1-21 ity of 200 mg/mL 00:00: [place] injection Medical Branch testosteron 0 Yes Univer s e cypionate 1-21 ity of 200 mg/mL 00:00: [place] injection Medical Branch testosteron 0 Yes Univer s e cypionate 1-21 ity of 200 mg/mL 00:00: [place] injection Medical Branch testosteron 0 Yes Univer s e cypionate 1-21 ity of 200 mg/mL 00:00: [place] injection Medical Branch testosteron 0 Yes Univer s e cypionate 1-21 ity of 200 mg/mL 00:00: [place] injection Medical Branch testosteron 0 Yes Univer s e cypionate 1-21 ity of 200 mg/mL 00:00: [place] injection Medical Branch testosteron 0 Yes Univer s e cypionate 1-21 ity of 200 mg/mL 00:00: [place] injection 00 Medical Branch testosteron 2020-0 Yes Univer s e cypionate 1-21 ity of 200 mg/mL 00:00: [place] injection 00 Medical Branch testosteron 2020-0 Yes Univer s e cypionate 1-21 ity of 200 mg/mL 00:00: [place] injection Medical Branch testosteron 2020-0 Yes Univer s e cypionate 1-21 ity of 200 mg/mL 00:00: [place] injection Medical Branch testosteron 2020-0 Yes Univer s e cypionate 1-21 ity of 200 mg/mL 00:00: [place] injection Medical Branch testosteron 2020-0 Yes Univer s e cypionate 1-21 ity of 200 mg/mL 00:00: [place] injection Medical Branch testosteron 0 Yes Univer s e cypionate 1-21 ity of 200 mg/mL 00:00: [place] injection Medical Branch testosteron 2020-0 Yes Univer s e cypionate 1-21 ity of 200 mg/mL 00:00: [place] injection Medical Branch testosteron 0 Yes Univer s e cypionate 1-21 ity of 200 mg/mL 00:00: [place] injection Medical Branch testosteron 0 Yes Univer s e cypionate 1-21 ity of 200 mg/mL 00:00: [place] injection Medical Branch Vital Signs Vital Name Observation Time Observation Value Comments Source Oxygen saturation 2020-09-02 16:21:00 95 /min [facility] in Arterial blood Medical Br anch by Pulse oximetry Systolic blood 2020-09-02 16:21:00 125 mm[facility] pressure Medical Branch Diastolic blood 2020-09-02 16:21:00 71 mm[facility]Hg[facility] Heart rate 2020-09-02 16:21:00 62 /min [facility] Body height 2020-09-02 16:21:00 177.8 cm [facility] Body weight 2020-09-02 16:21:00 107.956 kg [facility] BMI 2020-09-02 16:21:00 34.15 kg/m2 [facility] Systolic blood 2020-05-16 15:04:00 147 mm[Hg] Dipikaer sity [facility] Diastolic blood 2020-05-16 15:04:00 78 mm[facility] Heart rate 2020-05-16 15:00:00 50 /min [facility] Body height 2020-05-16 15:00:00 177.8 cm [facility] Body weight 2020-05-16 15:00:00 107.049 kg [facility] BMI 2020-05-16 15:00:00 33.86 kg/m2 [facility] Oxygen saturation 2020-05-16 15:00:00 97 /min [facility] Arterial blood [facility] by Pulse oximetry Procedures Procedure Date / Time Performing Clinician Source Performed PET BRAIN METABOLIC 2020-11-12 15:55:00 [facility] PET BRAIN METABOLIC 2020-11-12 15:55:00 Quinton Emerson [facility] POCT GLUCOSE (AUTOMATED) 2020-11-12 14:06:00 Quinton Emerson e [facility] INSURANCE CORRESPONDENCE 2020-11-10 05:01:00 Doctor Unassigned, [facility] [place] [facility] MR BRAIN WO CONTRAST 2020-07-16 16:44:14 [facility] Start End Encounter Admission Attending Care Care Encounter Source Date/Time Date/Time Type Type Clinicians Facility Department ID 2020-11-18 2020-11-18 Telephone Ki, [facility] ..840.114 [id number] [facility] 00:00:00 00:00:00 Quinton [place] [id number] [id number] [phone] [address] 2020-11-14 2020-11-14 [facility]840.114 [id number] Univers 00:00:00 00:00:00 Quinton Morris [id number] [id number] [phone] [facility] 092 [facility] 2020-11-13 2020-11-13 Telephone [facility] [id number] Univers 00:00:00 00:00:00 Quinton Morris [id number] [id number] [phone] [facility] 092 [facility] 2020-11-12 2020-11-12 [facility] [id number] Univers 08:40:27 23:59:00 Encounter [facility] [id number] [facility] [id number] [id number] [facility] [address] [place] 2020-11-12 2020-11-12 [facility] [id number] Univers 08:39:51 08:39:51 Encounter [facility] [id number] ity of [id number] [phone] [facility] [address] [place] 2020-11-12 2020-11-12 Outpatient QUINTON EMERSON [facility] [id number] Univers 00:00:00 00:00:00 [facility] 2020-11-11 2020-11-11 Telephone [facility] [id number] Univers 00:00:00 00:00:00 Quinton Morris [id number] [id number] [phone] [address] 2020-11-10 2020-11-10 Orders Doctor LANDON [id number] Univers 00:00:00 00:00:00 Only Unassigned, [place] [id number] ity of [place] [facility] [id number] [place] as [id number] [facility] [address] [place] 2020-11-03 2020-11-03 [facility] [id number] Univers 00:00:00 00:00:00 Quinton Morris [id number] [id number] [phone] [address] 2020-10-14 2020-10-14 [facility] [id number] Univers 00:00:00 00:00:00 Quinton Morris [id number] [id number] [id number] [address] 2020-09-02 2020-09-02 [facility] [id number] [facility] 11:07:40 11:57:58 Visit Quinton Morris [id number] [id number] [id number] [address] 2020-09-02 2020-09-02 Outpatient QUINTON CERON [facility] [id number] Univers 11:00:00 11:00:00 QUINTON EMERSON itpoly [facility] 2020-07-21 2020-07-21 [facility] [id number] Univers 00:00:00 00:00:00 Quinton Morris [id number] [id number] [phone] [address] 2020-07-16 2020-07-16 Outpatient R QUINTON EMERSON [facility] [id number] Univers 10:56:02 23:59:00 QUINTON EMERSON itpoly [facility] 2020-07-16 2020-07-16 [facility] [id number] Univers 10:56:02 23:59:00 Encounter Quinton Morris [id number] [id number] [id number] [facility] [address] [place] 2020-07-07 2020-07-07 [facility] 1.2.840.114 [id number] Univers 00:00:00 00:00:00 Quinton Romano Arturo [id number] [id number] [phone] [place] [id number] [facility] 2020-07-02 2020-07-02 [facility] [id number] Univers 00:00:00 00:00:00 Quinton Rodriguezton [id number] [id number] [phone] [address] 2020-06-04 2020-06-04 [facility] [id number] Univers 00:00:00 00:00:00 Quinton Romano Arturo [id number] [id number] [phone] [address] 2020-05-16 2020-05-16 Office Ki [facility] [id number] [facility] 08:36:18 09:37:36 Visit Quinton Morris [id number] [id number] [id number] [address] 2020-05-16 2020-05-16 Outpatient R QUINTON EMERSON [facility] [id number] [facility] 08:40:00 08:40:00 QUINTON EMERSON [facility] Results Test Description Test Time Test Results Result Source Comments Comments PET BRAIN 2020-10-24 Normal brain [facility] 1 metabolic activity. No [place] [facility] 21:43:14 evidence for a Branch neurodegenerativeproce ss. BRAIN F-18 FDG PET SCAN INDICATION: 55-year-old with cognitive impairment, Alzheimer's dementiasuspected. COMPARISON: Brain MRI 07/16/2020 TECHNIQUE: 14.3 mCi of F-18 fluorodeoxyglucose was administeredintravenou sly. The patient rested in a quiet room for 30 minutes. Then, ascan was performed covering the brain on up to date PET-CT system. BRAIN FINDINGS: Normal metabolic activity noted in association cortical areas, no deficitsnotes, slightly higher activity seen in motor cortical regions, ?visualcortex, bilateral caudate and thalami. The frontal cortex is normalmetabolic activity. Relative quantitation of the areas of associated with AD are normal:Right anterior temporal -15%Left anterior temporal -15%Right lateral temporal -9%Left lateral temporal -11%Right posterior parietal +8%Left posterior parietal -+12%Posterior cingulate +10%.The cerebellum has physiologic metabolic activity and was used forreference. Orbits and paranasal sinuses are clear.Physiologic activity seen in extraocular muscles.There is no active mucosal abnormality. [facility] [place], Radiant Results Inft User - 11/12/2020 4:44 PM CDT BRAIN F-18 FDG PET SCANINDICATION: 55-year-old with cognitive impairment, Alzheimer's dementiasuspected.COMP ARISON: Brain MRI 07/16/2020TECHNIQUE: 14.3 mCi of F-18 fluorodeoxyglucose was administeredintravenou sly. The patient rested in a quiet room for 30 minutes. Then, ascan was performed covering the brain on up to date PET-CT system. BRAIN FINDINGS: Normal metabolic activity noted in association cortical areas, no deficitsnotes, slightly higher activity seen in motor cortical regions, visualcortex, bilateral caudate and thalami. The frontal cortex is normalmetabolic activity.Relative quantitation of the areas of associated with AD are normal:Right anterior temporal -15%Left anterior temporal -15%Right lateral temporal -9%Left lateral temporal -11%Right posterior parietal +8%Left posterior parietal -+12%Posterior cingulate +10%.The cerebellum has physiologic metabolic activity and was used forreference.Orbits and paranasal sinuses are clear.Physiologic activity seen in extraocular muscles.There is no active mucosal abnormality.IMPRESSION Normal brain metabolic activity. No evidence for a neurodegenerativeproce ss. POCT GLUCOSE (AUTOMATED) 2020-11-12 14:07:13 Test Item Value Reference Range Interpretation Comme nts POCT GLU (test code = 1693852699) 103 mg/dL 70-110 Lab Interpretation (test code = 75012-4) [facility] [id number] 19:17:22 1. ?No acute intracranial abnormality. 2. ?Neuro Quant Age Related Atrophy report demonstrates Normal Scan: Doesnot support neurodegeneration. Preliminary Report Dictated by Resident: Steve Borjas MD., have reviewed this study and agree with the abovereport.EXAMINATION: MR BRAIN WO CONTRAST HISTORY: Headache, chronic, no new features Memory Loss COMPARISON: None. TECHNIQUE: Routine MRI of the brain was performed without intravenouscontrast administration. Quantitative volumetry of the brain was performed using Neuro Quant ([employer], [place], [place]) software package. The Neuro Quantanalysis was based on a sagittal 3D volumetric MPRAGE pulse sequence.Sequence-checking was performed to ensure appropriate high-resolution andcontrast image parameters. Correction for field/gradient inhomogeneities,removal of the overlying calvaria, alignment to the probabilistic atlas ofstereotypical anatomy and segmented volumetry of predetermined anatomicareas derived from multiple subjects of multiple age groups was performed.Two automated reports were generated. FINDINGS: The ventricles and cerebral sulci are normal in caliber and configuration.No midline shift, hydrocephalus or pathological extra-axial fluidcollection is present. The basal cisterns are unremarkable. No restricted diffusion is present to suggest acute infarct. Single focusof FLAIR hyperintense signal in the right frontal lobe deep white matter,nonspecific. Few small foci of CSF signal cystic structure atthe leftmesial temporal lobe likely hippocampal remnant cysts. No abnormal gradientblooming is seen.The T2 flow voids for the major intracranial vessels are unremarkable. Noabnormal fluid signal is present in the mastoid air cells or paranasal airsinuses. The age related atrophy report demonstrates:Hi ppocampal volume ?8 cc with normative percentile of 79.Superior lateral ventricular volume ?21.3 cc with normative percentile of23.Inferior lateral ventricular volume ?2.1 cc with normative percentile of88. [facility] [place], Radiant Results Inft User - 07/16/2020 2:18 PM CDTEXAMINATION: MR BRAIN WO CONTRASTHISTORY: Headache, chronic, no new features Memory Loss COMPARISON: None.TECHNIQUE: Routine MRI of the brain was performed without intravenouscontrast administration. Quantitative volumetry of the brain was performed using Neuro Quant ([employer], [place], [place]) software package. The Neuro Quantanalysis was based on a sagittal 3D volumetric MPRAGE pulse sequence.Sequence-checking was performed toensure appropriate high-resolution andcontrast image parameters. Correction for field/gradient inhomo geneities,removal of the overlying calvaria, alignment to the probabilistic atlas ofstereotypical anatomy and segmented volumetry of predetermined anatomicareas derived from multiple subjects of multiple age groups was performed.Two automated reports were generated. FINDINGS:The ventricles and cerebral sulci are normal in caliber and configuration.No midline shift, hydrocephalus or pathological extra-axial fluidcollection is present. The basal cisterns are unremarkable.No restricted diffusion is present to suggest acute infarct. Single focusof FLAIR hyperintense signal in the right frontal lobe deep white matter,nonspecific. Few small foci of CSF signal cystic structure at the leftmesial temporal lobe likely hippocampal remnant cysts. No abnormal gradientblooming is seen.The T2 flow voids for themajor intracranial vessels are unremarkable. Noabnormal fluid signal is present in the mastoid air cells or paranasal airsinuses.The age related atrophy report demonstrates:Hippocampal volume 8 cc withnormative percentile of 79.Superior lateral ventricular volume 21.3 cc with normative percentile of23.Inferior lateral ventricular volume 2.1 cc with normative percentile of88.IMPRESSION1. No acute intracranial abnormality. 2. Neuro Quant Age Related Atrophy report demonstrates Normal Scan: Doesnot support neurodegeneration. Preliminary Report Dictated by Resident: Steve Haney MD., have reviewed this study and agree with the abovereport.[facility]
--- NOTE | 2023-03-18 16:03 | RAD REPORT ---
EXAM DESCRIPTION: RAD - Elbow Right 3 View - 03/18/2023 3:38 pm CLINICAL HISTORY: Right elbow pain status post injury FINDINGS: A mildly displaced radial head fracture No dislocation
[2023-03-18] MEDS ORDERED: KETOROLAC 30 MG/ML INJ ONE (16:06)
--- NOTE | 2023-03-18 16:36 | EDPHYS ---
Physician Documentation [facility] Name: Harpreet Fonseca Age: 58 yrs Sex: Male : 1965 Arrival Date: 03/18/2023 Time: 13:38 Bed 10 Private MD: Lorraine Jesus H ED Physician José Antonio Acevedo HPI: 03/18 14:19 This 58 yrs old Male presents to ER via Unassigned with complaints of Arm Injury. ms3 14:19 58-year-old male with no past medical history presents to the emergency department for ms3 right arm pain after pulling on a box on a wall and breaking loose and him hitting his elbow on the counter. Patient states his pain is a 5/10. Patient states the pain is worse with pronation. Patient denies any alleviating factors. Historical: - Allergies: 14:20 No Known Allergies; cm10 - Home Meds: 14:20 None [Active]; cm10 - PMHx: 14:20 None; cm10 - Immunization history:: Adult Immunizations unknown. - Social history:: Smoking status: Patient denies any tobacco usage or history of. ROS: 14:19 Constitutional: Negative for fever, and chills. Neck: Negative for injury, pain, and ms3 swelling, Cardiovascular: Negative for chest pain, and palpitations. Respiratory: Negative for shortness of breath, cough, wheezing, and pleuritic chest pain, Abdomen/GI: Negative for abdominal pain, nausea, vomiting, diarrhea, and constipation, 14:19 MS/extremity: Positive for pain, of the Right elbow, 14:19 All other systems are negative, Exam: 14:19 Constitutional: This is a well developed, well nourished patient who is awake, alert, ms3 and in no acute distress. Head/Face: Normocephalic, atraumatic. Chest/axilla: Normal chest wall appearance and motion. Nontender with no deformity. Cardiovascular: Regular rate and rhythm with a normal S1 and S2. No gallops, murmurs, or rubs. Normal PMI, no JVD. No pulse deficits. Respiratory: Lungs have equal breath sounds bilaterally, clear to auscultation and percussion. No rales, rhonchi or wheezes noted. No increased work of breathing, no retractions or nasal flaring. Abdomen/GI: Soft, non-tender, with normal bowel sounds. No distension or tympany. No guarding or rebound. No evidence of tenderness throughout. Skin: Warm, dry with normal turgor. Normal color with no rashes, no lesions, and no evidence of cellulitis. 14:19 Musculoskeletal/extremity: Extremities: noted in the Right elbow: pain, Vital Signs: 14:18 BP 157 / 98; Pulse 79; Resp 18; Temp 98.2; Pulse Ox 99% ; Weight 117.93 kg; Height 5 cm10 ft. 10 in. ; Pain 6/10; 16:55 BP 141 / 78; Pulse 80; Resp 18; Pulse Ox 100% ; kb3 14:18 Body Mass Index 37.31 (117.93 kg, 177.8 cm) cm10 14:18 Pain Scale: Adult cm10 MDM: 14:05 Patient medically screened. ms3 14:19 Differential diagnosis: dislocation, closed fracture, Torn muscle. ms3 16:35 Data reviewed: vital signs, nurses notes, radiologic studies, and as a result, I will ms3 discharge patient. I considered the following discharge prescriptions or medication management in the emergency department Medications were administered in the Emergency Department. See MAR. Independent interpretation of the following test(s) in the Emergency Department X-Ray: My interpretation is Right elbow x-rays reviewed by me reveals anterior and posterior fat pads.. Counseling: I had a detailed discussion with the patient and/or guardian regarding the historical points, exam findings, and any diagnostic results supporting the discharge/admit diagnosis, radiology results, the need for outpatient follow up, to return to the emergency department if symptoms worsen or persist or if there are any questions or concerns that arise at home. Special discussion: I discussed with the patient/guardian in detail that at this point there is no indication for admission to the hospital. It is understood, however, that if the symptoms persist or worsen the patient needs to return immediately for re-evaluation. ED course: Discussed x-ray findings with patient and his . Patient to follow-up with Dr. Read in 2 to 3 days. Patient understands and agrees with plan. All questions were answered. Return precautions discussed include worsening symptoms, or any other concerns. On reevaluation patient's right hand neurovascularly intact. 03/18 14:06 Order name: Elbow Right 3 View XRAY; Complete Time: 16:21 ms3 03/18 16:23 Order name: Splint - Elbow - Posterior; Complete Time: 17:25 ms3 03/18 16:23 Order name: Sling; Complete Time: 17:25 ms3 Administered Medications: 15:52 Drug: Ketorolac IM 15 mg IM once Route: IM; Site: right deltoid; kb3 17:21 Follow up: Response: No adverse reaction; Pain is decreased kb3 Disposition Summary: 03/18/23 16:35 Discharge Ordered Notes: Location: Home ms3 Condition: Stable ms3 Diagnosis - Fracture of head of radius ms3 - Pain in right elbow ms3 Followup: ms3 - With: Junito Read MD - When: 2 - 3 days - Reason: Recheck today's complaints Discharge Instructions: - Discharge Summary Sheet ms3 - Radial Head Fracture, [id number] ms3 Forms: - Medication Reconciliation Form ms3 - Thank You Letter ms3 - Antibiotic Education ms3 - Prescription Opioid Use ms3 - Patient Portal Instructions ms3 - Leadership Thank You Letter ms3 Signatures: Dispatcher [employer] EDJosé Antonio Carpenter DO DO ms3 Aurea Leavitt, RN RN kb3 Concetta Burks RN RN cm10
--- NOTE | 2023-03-18 16:36 | ER ---
Nurse's Notes [facility] Name: Harpreet Fonseca Age: 58 yrs Sex: Male : 1965 Arrival Date: 03/18/2023 Time: 13:38 Bed 10 Private MD: Lorraine Jesus H Diagnosis: Fracture of head of radius;Pain in right elbow Presentation: 03/18 14:18 Chief complaint: Patient states: Right upper arm pain onset approximately 1hr ago. pt cm10 states that he hit his elbow on the counter. Coronavirus screen: Vaccine status: Patient reports receiving the 2nd dose of the covid vaccine. Client denies travel out of the [place] in the last 14 days. Ebola Screen: Patient denies travel to an Ebola-affected area in the 21 days before illness onset. No symptoms or risks identified at this time. Initial Sepsis Screen: Does the patient meet any 2 criteria? No. Patient's initial sepsis screen is negative. Does the patient have a suspected source of infection? No. Patient's initial sepsis screen is negative. Risk Assessment: Do you want to hurt yourself or someone else? Patient reports no desire to harm self or others. Onset of symptoms was March 18, 2023. 14:18 Method Of Arrival: Ambulatory cm10 14:18 Acuity: KATERINA 4 cm10 Triage Assessment: 14:25 General: Appears in no apparent distress. comfortable, Behavior is calm. Pain: cm10 Complains of pain in right tricep and right elbow. Neuro: No deficits noted. Level of Consciousness is awake, alert, obeys commands, Oriented to person, place, time, situation. Respiratory: No deficits noted. Airway is patent Respiratory effort is even, unlabored, Respiratory pattern is regular, symmetrical. Musculoskeletal: Range of motion: intact in all extremities, Reports pain in right arm. Injury Description: Pt hit elbow on counter. Historical: - Allergies: 14:20 No Known Allergies; cm10 - Home Meds: 14:20 None [Active]; cm10 - PMHx: 14:20 None; cm10 - Immunization history:: Adult Immunizations unknown. - Social history:: Smoking status: Patient denies any tobacco usage or history of. Screenin:25 [facility] ED Fall Risk Assessment (Adult) History of falling in the last 3 months, cm10 including since admission No falls in past 3 months (0 pts) Confusion or Disorientation No (0 pts) Intoxicated or Sedated No (0 pts) Impaired Gait No (0 pts) Mobility Assist Device Used No (0 pt) Altered Elimination No (0 pt) Score/Fall Risk Level 0 - 2 = Low Risk Oriented to surroundings, Maintained a safe environment, Hourly rounding (assess needs \T\ fall precautionary measures) done. Abuse screen: Denies threats or abuse. Denies injuries from another. Nutritional screening: No deficits noted. Tuberculosis screening: No symptoms or risk factors identified. Assessment: 15:15 General: Appears in no apparent distress. uncomfortable, Behavior is calm, cooperative. kb3 15:15 Pain: Complains of pain in right tricep and right elbow Pain does not radiate. Pain kb3 currently is 10 out of 10 on a pain scale. Quality of pain is described as sharp, throbbing. Musculoskeletal: Reports pain in right arm. Vital Signs: 14:18 BP 157 / 98; Pulse 79; Resp 18; Temp 98.2; Pulse Ox 99% ; Weight 117.93 kg; Height 5 cm10 ft. 10 in. ; Pain 6/10; 16:55 BP 141 / 78; Pulse 80; Resp 18; Pulse Ox 100% ; kb3 14:18 Body Mass Index 37.31 (117.93 kg, 177.8 cm) cm10 14:18 Pain Scale: Adult cm10 ED Course: 13:40 Patient arrived in ED. as 13:40 Lorraine Jesus DO is Private Physician. as 13:42 José Antonio Acevedo DO is Attending Physician. ms3 14:16 Radiology exam delayed due to no response to patient name in ed lobby. ml 14:20 Triage completed. cm10 14:20 Arm band placed on Patient placed in waiting room. cm10 14:25 Patient has correct armband on for positive identification. Provided Education on: ER cm10 process and procedures.. 14:25 No provider procedures requiring assistance completed. Patient did not have IV access cm10 during this emergency room visit. 15:40 Elbow Right 3 View XRAY In Process Unspecified. EDMS 16:34 Lorraine Jesus DO is Referral Physician. ms3 16:34 Junito Reyes MD is Referral Physician. ms3 17:00 Orthoglass splint: posterior long arm splint applied to the right arm. Sling applied to kb3 right arm. Administered Medications: 15:52 Drug: Ketorolac IM 15 mg IM once Route: IM; Site: right deltoid; kb3 17:21 Follow up: Response: No adverse reaction; Pain is decreased kb3 Medication: 14:25 VIS not applicable for this client. cm10 Outcome: 16:35 Discharge ordered by . ms3 16:55 Discharged to home ambulatory, with family, [facility] 16:55 Condition: stable 16:55 Discharge instructions given to patient, family, Instructed on discharge instructions, follow up and referral plans. medication usage, Splint care Demonstrated understanding of instructions, follow-up care, medications, 17:24 Patient left the ED. kb3 Signatures: Dispatcher [employer] EDMS Nimco Burks Melissa ml Sims, Marcus, DO DO ms3 Aurea Leavitt, RN RN kb3 Concetta Burks RN RN 10
[2023-03-18 17:42] VITALS: TEMP 98.2
[2023-03-18 17:43] VITALS: BP 141/78; O2SAT 100
== END 2023-03-18 17:24 | disposition home or self-care (01) ==
LOC: ER 13:38
DX: S52.121A Displaced fracture of head of right radius, initial encounter for closed fracture (principal); W22.01XA Walked into wall, initial encounter
CPT/HCPCS: 96372; 99284